=== PATIENT | male | born 1945 | race Caucasian/White ===

== ENCOUNTER 2017-01-04 09:52 | Inpatient (IN) | payer MEDICARE, OTHER ==
[2016-12-24 10:28] VITALS: BMI 29.0
[2017-01-04] MEDS ORDERED: cefTRIAXone IV 1 gm in Dextros 50 ML IVPB ONE (12:42)
[2017-01-04] MEDS ORDERED: Gentamicin 80 mg in 0.9% NS 80 MG/100 ML BAG IVPB ONE ×2 (12:42→13:04)
[2017-01-04] MEDS ORDERED: Lactated Ringer's 1,000 ML IV ONE ×3 (12:47→17:39)
[2017-01-04] MEDS ORDERED: Propofol 10 mg/ml Inj (20 ML) ONE (12:51)
[2017-01-04] MEDS ORDERED: Oxycodone/Acetaminophen 5/325 mg Tab PO PRN (13:42)
[2017-01-04] MEDS ORDERED: cefTRIAXone 500 MG in Sodium Chloride 0.9% 50 ML IVPB SCH (13:45)
[2017-01-04] MEDS ORDERED: HYDROmorphone 0.5 mg/0.5 ml ISec IVP PRN (13:46)
--- NOTE | 2017-01-04 13:48 | PCM.SURG1 ---
Surgeon's Initial Post Op Note - Surgeon's Notes Surgeon: Marvin Meyer [employer]itary Landfill Operator: none Type of Anesthesia: General LMA Pre-Operative Diagnosis: bph, retention Operative Findings: same Post-Operative Diagnosis: same Operation Performed: TURP Specimen/Specimens Removed: urine. prostate Estimated Blood Loss: EBL {In ML}: 50 Blood Products Given: N/A Post-Op Condition: Good Date of Surgery/Procedure: 01/04/17 Time of Surgery/Procedure: 13:40
[2017-01-04] MEDS ORDERED: (Novolin R) Insulin Human Regular 100 units/ml vial SC ONE (13:50)
--- NOTE | 2017-01-04 22:15 | CP.PCM.CON ---
Addendum entered and electronically signed by Darek Cruz 01/04/17 22:34: (4) Benign prostate hyperplasia Assessment and Plan: s/p TURPx2 Ceftriaxone 500mg ivpd q24 F/U urine culture, blood culture continue home med tamsulosin 0.4mg po daily Status: Acute (6) Prophylactic measure Assessment and Plan: GI: omeprazole 40mg po daily DVT: heparin 5000u sc q12 Diet: Diabetic Status: Acute Original Note: <Darek Cruz - Last Filed: 01/04/17 22:05> History of Present Illness - History of Present Illness History of Present Illness: 71 yr old M with PMHx of DM2, HTN, HLD, BPH, right eye blindness s/p Transuretheral Resection of Prostate (TURP) with Dr Meyer. Medicine is consulted to manage his medical conditions. Patient had uneventful TURP procedure and was seen s/p procedure resting comfortably in bed without any complaints. He was had maria with bladder irrigation with normal appearing output. Patient denied all prompts on review of systems. He denied chest pain, abdominal pain, shortness of breath, headache, pain, dysuria, nausea, vomiting, diarrhea, fever, chills. PMD: Dr Humphries PMHx: DM2, HTN, HLD, BPH, right eye blindness PSHx: TURP 2016, TURP 2001, Detached right side retina repair 2001 Home Medications: Folic Acid 1mg po daily, Latanoprost 2.5ml drops hs, metformin 1000mg po bid, omeprazole 40mg po daily, pioglitazone 30mg po daily, simvastatin 40mg po hs, tamsulosin 0.4mg po daily, valsartan 160mg po daily Allergies: NKA SocialHx: smoked 1/2 ppd for 30yrs, non-drinker, lives at home with and son , retired - worked at [employer] FamHx: denies Review of Systems - Constitutional Constitutional: absent: Chills, Fever, Headache - EENT Eyes: Loss of Vision Ears: absent: Abnormal Hearing Nose/Mouth/Throat: absent: Nasal Congestion - Cardiovascular Cardiovascular: absent: Chest Pain, Palpitations - Respiratory Respiratory: absent: Cough, Dyspnea, Wheezing - Gastrointestinal Gastrointestinal: absent: Abdominal Pain, Bloating, Constipation, Diarrhea, Vomiting - Genitourinary Genitourinary: absent: Dysuria, Flank Pain - Musculoskeletal Musculoskeletal: absent: Back Pain - Integumentary Integumentary: absent: Lesions - Neurological Neurological: absent: Abnormal Speech, Confusion, Dizziness - Hematologic/Lymphatic Hematologic: absent: Easy Bleeding Past Patient History - Past Medical History & Family History Past Medical History?: Yes - Past Social History Smoking Status: Former Smoker - CARDIAC Hx Cardiac Disorders: Yes Hx Hypercholesterolemia: Yes Hx Hypertension: Yes - PULMONARY Hx Respiratory Disorders: No - NEUROLOGICAL Hx Neurological Disorder: No - HEENT Hx HEENT Problems: Yes Hx Blind: Yes (RETINA DETACHMENT RIGHT EYE) Hx Glaucoma: Yes - RENAL Hx Chronic Kidney Disease: No - ENDOCRINE/METABOLIC Hx Endocrine Disorders: Yes Hx Diabetes Mellitus Type 2: Yes - HEMATOLOGICAL/ONCOLOGICAL Hx Blood Disorders: Yes Hx Anemia: Yes - INTEGUMENTARY Hx Dermatological Problems: No - MUSCULOSKELETAL/RHEUMATOLOGICAL Hx Musculoskeletal Disorders: Yes Hx Fractures: Yes (RIGHT ANKLE A TEEN-CASTED ONLY) - GASTROINTESTINAL Hx Gastrointestinal Disorders: Yes Hx Gastroesophageal Reflux: Yes - GENITOURINARY/GYNECOLOGICAL Hx Genitourinary Disorders: Yes Hx Hematuria: Yes Hx Prostate Problems: Yes Other/Comment: HX: URINARY RETENTION (PT. HAS URINARY CATH IN PLACE 12/24/16) - PSYCHIATRIC Hx Psychophysiologic Disorder: No - SURGICAL HISTORY Hx Surgeries: Yes Other/Comment: " I HAD A PROCEDURE ON MY PROSTATE MANY YEARS AGO.". HX: 2016 "CLEANED OUT CLOTS IN MY BLADDER" AT [facility]. STILL HAS URINARY CATH IN PLACE.(12/24/16) - ANESTHESIA Hx Anesthesia: Yes Hx Anesthesia Reactions: No Hx Malignant Hyperthermia: No Has any member of the family had a problem w/ anesthesia?: No Meds Allergies/Adverse Reactions: Allergies Allergy/AdvReac Type Severity Reaction Status Date / Time No Known Allergies Allergy Verified 12/24/16 10:28 - Medications Medications: Current Medications Docusate Sodium (Colace) 100 mg PO TID [facility] Folic Acid (Folic Acid) 1 mg PO DAILY [facility] Home Med (Metformin [Glucophage]) 1,000 mg PO BID [facility] Ceftriaxone Sodium 500 mg/ (Sodium Chloride) 100 mls @ 100 mls/hr IVPB Q24H [facility] Latanoprost (Xalatan Opht) ml OS HS [facility] Oxycodone/Acetaminophen (Percocet 5/325 Mg Tab) 1 tab PO Q4H PRN PRN Reason: Pain, moderate (4-7) Stop: 01/07/17 13:43 Physical Exam - Constitutional Appears: Well, Non-toxic, No Acute Distress - Head Exam Head Exam: ATRAUMATIC, NORMAL INSPECTION - Eye Exam Eye Exam: EOMI Pupil Exam: PERRL Additional comments: Right eye with cloudy cornea, non-responsive to light, normal dilation. Patient with hx of right eye retinal detachment and now with complete vision loss in right eye. - ENT Exam ENT Exam: Mucous Membranes Moist - Neck Exam Neck exam: Positive for: Normal Inspection. Negative for: Lymphadenopathy - Respiratory Exam Respiratory Exam: Clear to Auscultation Bilateral. absent: Rales, Rhonchi, Wheezes - Cardiovascular Exam Cardiovascular Exam: REGULAR RHYTHM, +S1, +S2. absent: Bradycardia, Tachycardia , Systolic Murmur - GI/Abdominal Exam GI & Abdominal Exam: Normal Bowel Sounds, Soft. absent: Distended, Firm, Tenderness - Rectal Exam Rectal Exam: Deferred - Extremities Exam Extremities exam: Positive for: normal inspection. Negative for: pedal edema - Neurological Exam Neurological exam: Alert, CN II-XII Intact, Oriented x3 - Psychiatric Exam Psychiatric exam: Normal Affect, Normal Mood - Skin Skin Exam: Dry, Intact, Normal Color, Warm Results - Vital Signs Recent Vital Signs: Last Vital Signs Temp 98.8 F 01/04/17 21:15 Pulse 73 01/04/17 21:15 Resp 14 01/04/17 21:15 BP 124/54 L 01/04/17 21:15 Pulse Ox 99 01/04/17 21:15 - Labs Labs: Laboratory Results - last 24 hr 01/04/17 01/04/17 10:27 13:47 POC Glucose (mg/dL) 276 H 284 H Assessment & Plan (1) Diabetes mellitus Assessment and Plan: DM2, fingerchecks in 200s Accuchecks ACHS Regular Insulin Sliding Scale - medium dose protocol Diabetic Diet Continue home med metformin 1000mg po bid continue home med pioglitazone 30mg po daily Status: Acute (2) Hypertension Assessment and Plan: BP controlled continue home med valsartan 160mg po daily Status: Acute (3) Hyperlipemia Assessment and Plan: Hx of HLD continue home med simvastatin 40mg po hs Status: Acute (4) Benign prostate hyperplasia Assessment and Plan: s/p TURPx2 F/U urine culture, blood culture continue home med tamsulosin 0.4mg po daily Status: Acute (5) Blindness, right eye, normal vision left eye Assessment and Plan: right eye blindness; Hx of right eye retinal detachment 15 year ago continue home med latanoprost 2.5ml os hs Status: Acute (6) Prophylactic measure Assessment and Plan: GI: not indicated DVT: heparin 5000u sc q12 Diet: Diabetic Status: Acute <Shaun Campos - Last Filed: 01/05/17 06:13> Meds - Medications Medications: Current Medications Docusate Sodium (Colace) 100 mg PO TID [facility] Folic Acid (Folic Acid) 1 mg PO DAILY [facility] Heparin Sodium (Porcine) (Heparin) 5,000 units SC Q12H [facility] Last Admin: 01/04/17 22:50 Dose: 5,000 units Ceftriaxone Sodium 500 mg/ (Sodium Chloride) 100 mls @ 100 mls/hr IVPB Q24H [facility] Insulin Human Regular (Novolin R) 0 unit SC ACHS [facility] PRN Reason: Protocol Latanoprost (Xalatan Opht) 0 ml OS HS [facility] Losartan Potassium (Cozaar) 100 mg PO DAILY [facility] Metformin HCl (Glucophage) 1,000 mg PO BID [facility] Oxycodone/Acetaminophen (Percocet 5/325 Mg Tab) 1 tab PO Q4H PRN PRN Reason: Pain, moderate (4-7) Stop: 01/07/17 13:43 Pantoprazole Sodium (Protonix Ec Tab) 40 mg PO DAILY [facility] Pioglitazone HCl (Actos) 30 mg PO DAILY [facility] Rosuvastatin Calcium (Crestor) 10 mg PO HS [facility] Tamsulosin HCl (Flomax) 0.4 mg PO DAILY [facility] Results - Vital Signs Recent Vital Signs: Last Vital Signs Temp 97.9 F 01/05/17 04:00 Pulse 50 L 01/05/17 04:00 Resp 18 01/05/17 04:00 BP 130/70 01/05/17 04:00 Pulse Ox 97 01/05/17 04:00 - Labs Labs: Laboratory Results - last 24 hr 01/04/17 01/04/17 01/04/17 10:27 13:47 22:02 POC Glucose (mg/dL) 276 H 284 H 211 H Assessment & Plan - Date & Time Date: 01/05/17 (I have seen and examined the patient. I agree with the findings and plan of care as documented by Dr. Cruz. Patient with history of diabetes, hypertension and hypercholesterolemia. Continue home meds. S/P TURP. To be managed by Dr. Meyer. Monitor for acute changes.) Time: 06:12 Attending/Attestation - Attestation I have personally seen and examined this patient.: Yes I have fully participated in the care of the patient.: Yes I have reviewed all pertinent clinical information: Yes
[2017-01-05 07:35] LABS: HEMATOCRIT 30.9 % (35.0-51.0); MEAN CELL VOLUME 76.6 fL (80.0-94.0); MEAN CORPUSCULAR HEMOGLOBIN 24.1 pg (27.0-31.0); MEAN CORPUSCULAR HGB CONC 31.5 g/dL (33.0-37.0); MEAN PLATELET VOLUME 8.3 fL (7.2-11.7); RED CELL DISTRIBUTION WIDTH 19.3 % (11.5-14.5); WHITE BLOOD COUNT 12.2 K/uL (4.8-10.8)
[2017-01-05] MEDS: (Novolin R) Insulin Human Regular 100 units/ml vial SC SCH ×2 (07:35→12:15)
[2017-01-05 07:53] LABS: CHLORIDE 102 mmol/L (98-107); POTASSIUM 4.1 mmol/L (3.6-5.2); SODIUM 138 mmol/L (132-148)
[2017-01-05 07:56] LABS: BLOOD UREA NITROGEN 13 mg/dL (9-20); CARBON DIOXIDE 23 mmol/L (22-30); GFR AFRICAN-AMERICAN > 60; GLUCOSE,RANDOM 203 mg/dL (75-110)
[2017-01-05 07:57] LABS: CALCIUM 8.7 mg/dl (8.6-10.4)
[2017-01-05 08:44] VITALS: BP 120/68; PULSE 87; RESP 20; TEMP 98.9; O2SAT 96
--- NOTE | 2017-01-05 09:46 | CP.PCM.PN ---
<Anne Reed - Last Filed: 01/05/17 09:43> Subjective - Date & Time of Evaluation Date of Evaluation: 01/05/17 Time of Evaluation: 07:00 - Subjective Subjective: Medicine Note for Dr. Rendon Patient was seen and examined at bedside. Patient reports no acute complaints. He denied any abdominal, suprapubic pain, hematuria, dysuria, fever, or chills. Patient denied any acute pain. He reports he follows closely with his PMD every 3 months, last visit was 3 weeks ago. Denied fever, chills, headache, chest pain , SOB, abdominal pain, suprapubic tenderness, n/v/d/c, or urinary symptoms. Objective - Vital Signs/Intake and Output Vital Signs (last 24 hours): Temp Pulse Resp BP Pulse Ox 98.9 F 87 20 120/68 96 01/05/17 07:00 01/05/17 07:00 01/05/17 07:00 01/05/17 07:00 01/05/17 07:00 Intake and Output: 01/05/17 01/05/17 06:59 18:59 Intake Total 3200 Output Total 4200 Balance -1000 - Medications Medications: Current Medications Docusate Sodium (Colace) 100 mg PO TID [facility] Last Admin: 01/05/17 09:30 Dose: 100 mg Folic Acid (Folic Acid) 1 mg PO DAILY [facility] Last Admin: 01/05/17 09:31 Dose: 1 mg Heparin Sodium (Porcine) (Heparin) 5,000 units SC Q12H [facility] Last Admin: 01/04/17 22:50 Dose: 5,000 units Ceftriaxone Sodium 500 mg/ (Sodium Chloride) 100 mls @ 100 mls/hr IVPB Q24H [facility] Insulin Human Regular (Novolin R) 0 unit SC ACHS [facility] PRN Reason: Protocol Last Admin: 01/05/17 07:35 Dose: 4 unit Latanoprost (Xalatan Opht) 0 ml OS HS [facility] Losartan Potassium (Cozaar) 100 mg PO DAILY [facility] Last Admin: 01/05/17 09:31 Dose: 100 mg Metformin HCl (Glucophage) 1,000 mg PO BID [facility] Last Admin: 01/05/17 09:31 Dose: 1,000 mg Oxycodone/Acetaminophen (Percocet 5/325 Mg Tab) 1 tab PO Q4H PRN PRN Reason: Pain, moderate (4-7) Stop: 01/07/17 13:43 Pantoprazole Sodium (Protonix Ec Tab) 40 mg PO DAILY [facility] Last Admin: 01/05/17 09:31 Dose: 40 mg Pioglitazone HCl (Actos) 30 mg PO DAILY [facility] Last Admin: 01/05/17 09:31 Dose: 30 mg Rosuvastatin Calcium (Crestor) 10 mg PO [facility] Tamsulosin HCl (Flomax) 0.4 mg PO DAILY [facility] Last Admin: 01/05/17 09:30 Dose: 0.4 mg - Labs Labs: 01/05/17 07:26 01/05/17 07:26 - Constitutional Appears: No Acute Distress - Head Exam Head Exam: NORMAL INSPECTION, NORMOCEPHALIC - Eye Exam Eye Exam: EOMI, Normal appearance, PERRL - ENT Exam ENT Exam: Mucous Membranes Moist - Neck Exam Neck Exam: Normal Inspection - Respiratory Exam Respiratory Exam: Clear to Ausculation Bilateral, NORMAL BREATHING PATTERN. absent: Decreased Breath Sounds - Cardiovascular Exam Cardiovascular Exam: REGULAR RHYTHM - GI/Abdominal Exam GI & Abdominal Exam: Soft, Normal Bowel Sounds. absent: Tenderness - Extremities Exam Extremities Exam: Normal Inspection. absent: Pedal Edema, Tenderness - Neurological Exam Neurological Exam: Alert, Awake, Oriented x3 - Psychiatric Exam Psychiatric exam: Normal Affect, Normal Mood - Skin Skin Exam: Dry, Intact, Normal Color, Warm Assessment and Plan - Assessment and Plan (Free Text) Plan: Benign prostate hyperplasia Assessment and Plan: s/p TURPx2 Percocet PRN pain Ceftriaxone 500mg ivpd q24 continue home med tamsulosin 0.4mg po daily F/U urine culture, blood culture Management as per Dr. Diane Meyer Status: Acute Diabetes mellitus Assessment and Plan: DM2, fingerchecks in 200s Accuchecks ACHS Regular Insulin Sliding Scale - medium dose protocol Diabetic Diet Continue home med metformin 1000mg po bid Continue home med pioglitazone 30mg po daily Status: Acute Hypertension Assessment and Plan: BP controlled continue home med valsartan 100mg po daily Status: Acute Hyperlipemia Assessment and Plan: Hx of HLD Crestor 10mg PO QHS Status: Acute Prophylactic measure Assessment and Plan: GI: omeprazole 40mg po daily DVT: heparin 5000u sc q12 Diet: Diabetic Status: Acute DW Derek Miller DO, PGY-1 Medicine Team will follow this patient closely during his hospital course. Discharge as per primary team, Dr. Diane Meyer. Thank you for this consult, we will continue to follow. <Phu Rendon - Last Filed: 01/05/17 17:58> Objective - Vital Signs/Intake and Output Vital Signs (last 24 hours): Temp Pulse Resp BP Pulse Ox 98.9 F 87 20 120/68 96 01/05/17 07:00 01/05/17 07:00 01/05/17 07:00 01/05/17 07:00 01/05/17 07:00 Intake and Output: 01/05/17 01/05/17 06:59 18:59 Intake Total 3200 Output Total 4200 Balance -1000 - Labs Labs: 01/05/17 07:26 01/05/17 07:26 Attending/Attestation - Attestation I have personally seen and examined this patient.: Yes I have fully participated in the care of the patient.: Yes I have reviewed all pertinent clinical information, including history, physical exam and plan: Yes Notes (Text): 01/05/17 17:58 Patient seen and examined with the resident I discussed the plan of care with the resident I agree with the assessment and plan documented.
[2017-01-05] MEDS ORDERED: Pantoprazole 40 mg EC Tab PO SCH (10:00)
[2017-01-05] MEDS ORDERED: Latanoprost 2.5 ml Opht Soln OS SCH (22:00)
--- NOTE | 2017-01-06 23:37 | PCM.URO ---
Urology Progress Note - General General: No Complaints, Tolerating Diet - Subjective Abdominal Pain: No Flank Pain: No Nausea: No Vomiting: No Voiding Well: Yes (catheter was removed today; this was not my intention. ) Hematuria: No (However, pt is voiding well, with clear urine. Therefore, I will not insert) Urinary Urgency: No (catheter.) Good Stream: Yes Weak Stream: No Stone Passed: No Dsypnea: No Chest Pain: No Fever & Chills: No - Objective Lab Studies: Reviewed - Physical Exam Abdominal Exam: Soft, Non-Tender, Non-Distended Back: No CVA Tenderness Genitalia: Without Inflammation Extremities: Normal: Bilateral - Male Phallus: Normal Scrotum: Normal - Plan Ambulation - Out of Bed: Yes Intake & Output: Yes See Orders: Yes Additional Information: Imp: doing well, p turp. P: home today. outpt f/u. po antibiotics Levaquin. restricted activity. discussed w pt and nursing staff - Date & Time of Note Date: 01/05/17 Time: 10:00
--- NOTE | 2017-01-07 03:51 | OP ---
DATE: 01/04/2017 UROLOGICAL OPERATIVE NOTE PREOPERATIVE DIAGNOSES: 1. Urinary retention. 2. Prostatic enlargement. POSTOPERATIVE DIAGNOSES: 1. Urinary retention. 2. Prostatic enlargement. PROCEDURE: Transurethral resection of prostate. OPERATING SURGEON: Dr. Amanda Meyer. DESCRIPTION OF PROCEDURE: General anesthesia was administered. Perioperative antibiotics were administered. The patient was placed in lithotomy position. Genitalia prepped and sterilely. A 26-[place] continuous flow resectoscope sheath was introduced under direct vision using the visual obturator. The urethra, prostate, and bladder were inspected. The resectoscope was inserted. The shortening prostatic adenomatous tissue was resected. Resection was begun at the bladder neck on the floor. Thereafter, the anterior roof tissue was resected to midline. Subsequently, right lateral lobe and thereafter the left lateral lobe were resected. Subsequently, the floor and apical prostatic tissue were resected, with the surgeon's index finger within the O'Greg drape in the rectum. Hemostasis was achieved after each section of resection. The prostatic chips were removed using the [employer] scientific evacuator. The resectoscope was reinserted. The landmarks of were identified and were intact. The ureteral orifice were identified and were intact. There were no residual prostatic chips. There was no bleeding.. The resectoscope sheath removed. A Shafer catheter was inserted. Bladder drainage was clear. The patient tolerated procedure without complication. Amanda Meyer MD cc: CYNDI TRAN
== END 2017-01-05 14:49 | disposition home or self-care (01) | DRG 713 ==
LOC: C.9S 09:52 → C.6T 21:30
PROVIDERS: ADMIT Internal Medicine; ATTEND Internal Medicine
PROC: 0VT08ZZ Resection of Prostate, Via Natural or Artificial Opening Endoscopic (ICD-10-PCS; principal; 2017-01-04 12:47)
DX: N40.1 Benign prostatic hyperplasia with lower urinary tract symptoms (principal); H33.21 Serous retinal detachment, right eye; E11.9 Type 2 diabetes mellitus without complications; D64.9 Anemia, unspecified; I10 Essential (primary) hypertension; R33.8 Other retention of urine; E78.5 Hyperlipidemia, unspecified; Z87.891 Personal history of nicotine dependence